=== PATIENT | male | born 1940 | race Caucasian/White ===

== ENCOUNTER 2021-10-16 14:29 | Emergency (ER) | payer OTHER ==
[2021-10-16 14:38] VITALS: BP 137/50; TEMP 99.8; BMI 25.8
[2021-10-16] MEDS ORDERED: BEBTELOVIMAB (EUA) 175 MG/2 ML VIAL IVPUSH ONE (16:11)
[2021-10-16 17:49] VITALS: PULSE 62
== END 2021-10-16 17:49 | disposition home or self-care (01) ==
LOC: JER 14:29
DX: U07.1 COVID-19 (principal)
CPT/HCPCS: 82962; 96374; 99284-25; M0222; Q0222